=== PATIENT | female | born 1995 | race Hispanic/Latino ===

== ENCOUNTER 2017-05-05 09:22 | Emergency (ER) | payer SELFPAY ==
[2017-05-05 12:16] LABS: #Basophils 0.1 thou/uL (0.0-0.2); #Lymphocytes 1.4 thou/uL (1.20-3.40); #Monocytes 1.1 thou/uL (0.11-0.59); #Neutrophils 16.9 thou/uL (1.40-6.50); %Basophils 0.3 % (0.0-1.0); %Eosinophils 0.2 % (0.0-10.0); %Monocytes 5.8 % (0.0-4.0); Hematocrit 40.4 % (36.0-47.0); Mean Platelet Volume 8.4 fL (7.4-10.4); Red Blood Cell (RBC) Count 4.13 mill/uL (4.00-5.20); White Blood Cell (WBC) Count 19.4 thou/uL (4.8-10.8)
[2017-05-05] MEDS ORDERED: Ondansetron HCl/PF 4 MG/2 ML Vial ONE (12:40)
[2017-05-05 12:44] LABS: ALT (SGPT) 8 U/L (8-55); AST (SGOT) 15 U/L (5-30); Alkaline Phosphatase 62 U/L (40-150); Anion Gap 14 mmol/L (10-20); BUN (Urea Nitrogen) 13 mg/dL (8.4-21.0); Bilirubin, Total 1.4 mg/dL (0.2-1.2); Calc. Creatinine Clearance 0 mL/min (70-130); Calcium 9.7 mg/dL (7.8-10.44); Carbon Dioxide 25 mmol/L (22-29); Chloride 106 mmol/L (98-107); Estimated GFR-MDRD Greater than 90; Globulin 3.5 g/dL (2.4-3.5); Lipase 7 U/L (8-78); Protein, Total 8.1 g/dL (6.0-8.3)
[2017-05-05 13:27] LABS: Bilirubin Negative (Negative); Blood, Urine Negative (Negative); Glucose, Urine (Dipstick) Negative (Negative); Ketone, Urine 40 mg/dL (Negative); Nitrite Negative (Negative); Protein, Urine (Dipstick) Trace mg/dL (Neg-Trace); Urobilinogen 0.2 mg/dL (0.2-1.0)
[2017-05-05] MEDS ORDERED: Metoclopramide HCl 10 MG/2 ML VIAL ONE (14:03)
[2017-05-05] MEDS ORDERED: Morphine Sulfate 2 MG/ML SYRINGE ONE (15:51)
[2017-05-05] MEDS ORDERED: ISOVUE-370 76%-LOCM 1 ML ONE (16:46)
--- NOTE | 2017-05-05 17:19 | CT ---
CONTRAST ENHANCED CT IMAGES OF THE ABDOMEN AND PELVIS: History: Nausea, vomiting. Technique: Contrast enhanced CT of the abdomen and pelvis obtained administration of IV contrast. Or al contrast was not given. This does decrease the sensitivity for detection of pathology. FINDINGS: The lung bases are unremarkable. No evidence of free intraperitoneal air is seen. The liver, spleen, gallbladder, pancreas, adrenal glands, and kidneys are unremarkable. No dilated loops of small natalie l is seen. A normal appendix is seen. No significant evidence of colonic distention. No evidence of periaortic lymphadenopathy is seen. No evidence of significant pelvic fluid is seen. IMPRESSION: Unremarkable but limited CT of abdomen and pelvis. Small bowel does not appear to be dilated or obst ructed. POS: [facility]
== END 2017-05-05 17:30 | disposition home or self-care (01) ==
LOC: ERS 09:22
DX: R11.2 Nausea with vomiting, unspecified (principal); D50.9 Iron deficiency anemia, unspecified; Z87.891 Personal history of nicotine dependence
CPT/HCPCS: 36415; 74177; 80053; 81003; 81025; 83690; 84703; 85025; 87086; 96361; 96365; 96366; 96375; J2270; J2405; J2765

== ENCOUNTER 2017-05-07 08:00 | Emergency (ER) | payer SELFPAY ==
[2017-05-07 09:04] LABS: %Basophils 0.2 % (0.0-1.0); %Eosinophils 0.2 % (0.0-10.0); %Lymphocytes 17.6 % (28.0-48.0); Hematocrit 41.3 % (36.0-47.0); Mean Platelet Volume 7.9 fL (7.4-10.4); Red Blood Cell (RBC) Count 4.24 mill/uL (4.00-5.20); White Blood Cell (WBC) Count 8.9 thou/uL (4.8-10.8)
[2017-05-07 09:05] LABS: #Lymphocytes 1.6 thou/uL (1.20-3.40); #Neutrophils 6.3 thou/uL (1.40-6.50)
[2017-05-07 09:21] LABS: ALT (SGPT) 10 U/L (8-55); AST (SGOT) 14 U/L (5-30); Alkaline Phosphatase 56 U/L (40-150); Anion Gap 11 mmol/L (10-20); BUN (Urea Nitrogen) 16 mg/dL (8.4-21.0); Bilirubin, Total 2.4 mg/dL (0.2-1.2); Calc. Creatinine Clearance 0 mL/min (70-130); Calcium 9.5 mg/dL (7.8-10.44); Carbon Dioxide 26 mmol/L (22-29); Chloride 103 mmol/L (98-107); Estimated GFR-MDRD Greater than 90; Globulin 3.4 g/dL (2.4-3.5); Lipase 24 U/L (8-78); Protein, Total 7.8 g/dL (6.0-8.3)
[2017-05-07] MEDS ORDERED: Ondansetron HCl/PF 4 MG/2 ML Vial ONE (10:20)
[2017-05-07] MEDS ORDERED: Ketorolac Tromethamine 30 MG/ML VIAL ONE (10:20)
[2017-05-07] MEDS ORDERED: Lidocaine 2% Viscous Solution 10 ML, Aluminum & Magnesium Hydroxide 20 ML, Donnatal Eli... SSW SCH ×3 (12:15)
[2017-05-07] MEDS ORDERED: Mag-Al 1200 mg/1200 mg/30 ML UDCUP ONE (12:20)
[2017-05-07] MEDS ORDERED: Lidocaine Viscous Sol 2% 15 ml UD Cup ONE (12:20)
== END 2017-05-07 13:03 | disposition home or self-care (01) ==
LOC: ERS 08:00
DX: R11.2 Nausea with vomiting, unspecified (principal); R10.9 Unspecified abdominal pain; D50.9 Iron deficiency anemia, unspecified; Z87.891 Personal history of nicotine dependence
CPT/HCPCS: 36415; 80053; 83690; 85025; 96361; 96374; 96375; J1885; J2405

== ENCOUNTER 2018-01-13 18:12 | Emergency (ER) | payer SELFPAY ==
[2018-01-13 18:53] LABS: #Eosinphils 0.2 thou/uL (0.0-0.7); #Lymphocytes 2.4 thou/uL (1.20-3.40); #Monocytes 0.7 thou/uL (0.11-0.59); #Neutrophils 3.3 thou/uL (1.40-6.50); %Basophils 0.5 % (0.0-1.0); %Eosinophils 2.4 % (0.0-10.0); %Monocytes 10.8 % (0.0-4.0); %Neutrophils 50.2 % (31.0-61.0); Mean Corpuscular HGB CONC 34.6 g/dL (32.0-36.0); Mean Corpuscular Hemoglobin 33.1 pg (25.0-35.0); Mean Corpuscular Volume 95.5 fl (77.0-87.0); Mean Platelet Volume 7.7 fL (7.4-10.4); Platelet Count 186 thou/uL (130-400); RBC Distribution Width 11.4 % (11.5-14.5); Red Blood Cell (RBC) Count 4.23 mill/uL (4.00-5.20); White Blood Cell (WBC) Count 6.6 thou/uL (4.8-10.8)
[2018-01-13 19:05] LABS: Bilirubin Negative (Negative); Blood, Urine Negative (Negative); Clarity TURBID (Clear); Glucose, Urine (Dipstick) Negative (Negative); Leukocyte Negative (Negative); Nitrite Negative (Negative); Protein, Urine (Dipstick) Negative (Neg-Trace); Specific Gravity, Urine 1.015 (1.002-1.036); Urobilinogen 0.2 mg/dL (0.2-1.0)
[2018-01-13 19:06] LABS: Pregnancy Test - Urine (BHCG) Negative (Negative); Pregu Control Background? CLEAR/WHITE (CLR/WHITE); Pregu Control Bar Appear? YES (CONTROL BAR); Specific Gravity 1.015 (1.002-1.036)
[2018-01-13] MEDS ORDERED: Lidocaine Viscous Sol 2% 15 ml UD Cup ONE (19:11)
[2018-01-13] MEDS ORDERED: Mag-Al 1200 mg/1200 mg/30 ML UDCUP ONE (19:11)
[2018-01-13 19:14] LABS: ALT (SGPT) 7 U/L (8-55); AST (SGOT) 17 U/L (5-34); Albumin 4.7 g/dL (3.5-5.0); Alkaline Phosphatase 64 U/L (40-150); Anion Gap 13 mmol/L (10-20); BUN (Urea Nitrogen) 13 mg/dL (7.0-18.7); Bilirubin, Total 1.8 mg/dL (0.2-1.2); Calc. Creatinine Clearance 0 mL/min (70-130); Calcium 9.8 mg/dL (7.8-10.44); Carbon Dioxide 25 mmol/L (22-29); Chloride 104 mmol/L (98-107); Estimated GFR-MDRD Greater than 90; Globulin 3.2 g/dL (2.4-3.5); Glucose 98 mg/dL (70-105); Lipase 28 U/L (8-78); Potassium 4.2 mmol/L (3.5-5.1); Protein, Total 7.9 g/dL (6.0-8.3); Sodium 138 mmol/L (136-145)
--- NOTE | 2018-01-13 22:05 | ULT ---
GALLBLADDER ULTRASOUND: HISTORY: Right upper quadrant pain. Epigastric pain. COMPARISON: None. TECHNIQUE: Utilizing a Multi-Hertz transducer, sonographic imaging of the right upper quadrant is performed in t he longitudinal and transverse plane. FINDINGS: The head and body of the pancreas have a normal echotexture. The pancreatic tail is obscured by natalie l gas. The hepatic parenchyma has a normal echotexture. No hepatic masses or intrahepatic biliary dilatatio n. The contour of the hepatic margin is maintained. IVC is unremarkable. Contracted gallbladder due to nonfasting state. Common bile duct diameter is 0.2 cm. The main portal vein is patent. Appropriate directional flow. No hydronephrosis. The right kidney measures 9.3 cm in maximum dimension. IMPRESSION: Contracted gallbladder due to nonfasting state. POS: [facility]
== END 2018-01-13 21:05 | disposition home or self-care (01) ==
LOC: ERS 18:12
DX: K29.70 Gastritis, unspecified, without bleeding (principal); D50.9 Iron deficiency anemia, unspecified; Z87.891 Personal history of nicotine dependence; Z79.899 Other long term (current) drug therapy
CPT/HCPCS: 36415; 76705; 80053; 81003; 81025; 83690; 85025

== ENCOUNTER 2018-02-02 10:00 | Emergency (ER) | payer SELFPAY ==
[2018-02-02] MEDS ORDERED: Ondansetron ODT 4 MG TAB ONE (10:21)
[2018-02-02] MEDS ORDERED: Ketorolac Tromethamine 60 MG/2 ML VIAL ONE (10:21)
[2018-02-02] MEDS ORDERED: Metoclopramide HCl 10 MG TAB PO SCH (12:15)
[2018-02-02 12:20] LABS: Bilirubin Negative (Negative); Blood, Urine Moderate (Negative); Clarity CLEAR (Clear); Glucose, Urine (Dipstick) Negative (Negative); Leukocyte Negative (Negative); Nitrite Negative (Negative); Protein, Urine (Dipstick) Trace mg/dL (Neg-Trace); Specific Gravity, Urine 1.026 (1.002-1.036)
[2018-02-02 12:22] LABS: Pregnancy Test - Urine (BHCG) Negative (Negative); Pregu Control Background? CLEAR/WHITE (CLR/WHITE); Pregu Control Bar Appear? YES (CONTROL BAR); Specific Gravity 1.026 (1.002-1.036)
[2018-02-02 12:23] LABS: Bacteria/HPF None Seen HPF (None Seen); Hyaline Casts/LPF 0-3 HYALINE CAST LPF (0-3 Hyaline); WBC/HPF 0-3 HPF (0-3)
[2018-02-02 12:24] LABS: Renal Epithelial None Seen HPF (0-3); Transitional Epithelial NONE SEEN HPF (0-3)
[2018-02-02] MEDS ORDERED: Promethazine HCl 25 MG/ML VIAL ONE (12:55)
== END 2018-02-02 15:16 | disposition home or self-care (01) ==
LOC: ERS 10:00
DX: N94.6 Dysmenorrhea, unspecified (principal); R11.2 Nausea with vomiting, unspecified; D50.9 Iron deficiency anemia, unspecified; Z87.891 Personal history of nicotine dependence
CPT/HCPCS: 81003; 81015; 81025; 87086; 96365; 96366; 96372; J1885; J2550; Q0162

== ENCOUNTER 2018-08-28 21:08 | Emergency (ER) | payer SELFPAY ==
--- NOTE | 2018-08-28 21:43 | RAD ---
RADIOGRAPH RIGHT FOREARM TWO VIEWS: 08/28/18 HISTORY: 23-year-old female with blunt traumatic pain to the forearm. FINDINGS: Ulna minus. No fracture or any other focal osseous abnormality involving the radius or ulna. IMPRESSION: 1. Ulnar negative variance. 2. Otherwise negative. POS: [facility]
== END 2018-08-28 22:04 | disposition home or self-care (01) ==
LOC: ERS 21:08
DX: S50.11XA Contusion of right forearm, initial encounter (principal); D50.0 Iron deficiency anemia secondary to blood loss (chronic); Z87.891 Personal history of nicotine dependence; W20.8XXA Other cause of strike by thrown, projected or falling object, initial encounter

== ENCOUNTER 2018-09-27 06:47 | Emergency (ER) | payer SELFPAY ==
[2018-09-27] MEDS ORDERED: Ibuprofen 800 MG TAB ONE (07:18)
[2018-09-27] MEDS ORDERED: Ondansetron ODT 4 MG TAB ONE (07:18)
[2018-09-27 08:17] LABS: BHCG - Serum Negative (NEGATIVE); Pregs Control Background? CLEAR/WHITE (CLR/WHITE); Pregs Control Bar Appear? YES (CONTROL BAR)
== END 2018-09-27 08:44 | disposition home or self-care (01) ==
LOC: ERS 06:47
DX: N94.6 Dysmenorrhea, unspecified (principal); R11.2 Nausea with vomiting, unspecified; D50.9 Iron deficiency anemia, unspecified; Z87.891 Personal history of nicotine dependence
CPT/HCPCS: 36415; 84703; 99284; Q0162

== ENCOUNTER 2019-02-25 14:36 | Emergency (ER) | payer SELFPAY | END 2019-02-25 15:17 | disposition left against medical advice (07) | LOC: ERS 14:36 | DX: Z53.21 Procedure and treatment not carried out due to patient leaving prior to being seen by health care provider (principal) ==

== ENCOUNTER 2019-07-16 17:34 | Emergency (ER) | payer SELFPAY | END 2019-07-16 17:59 | disposition left against medical advice (07) | LOC: ERS 17:34 | DX: Z53.21 Procedure and treatment not carried out due to patient leaving prior to being seen by health care provider (principal) ==

== ENCOUNTER 2019-10-28 23:02 | Emergency (ER) | payer SELFPAY ==
[2019-10-28] MEDS ORDERED: Ondansetron PF 4 MG/2 ML Vial ONE ×2 (23:58→23:59)
[2019-10-28] MEDS ORDERED: Fentanyl 100 MCG/2 ML VIAL ONE (23:59)
[2019-10-29 00:22] LABS: #Basophils 0.1 thou/uL (0.0-0.2); #Lymphocytes 1.5 thou/uL (1.20-3.40); #Monocytes 1.2 thou/uL (0.11-0.59); #Neutrophils 11.5 thou/uL (1.40-6.50); %Basophils 0.4 % (0.0-1.0); %Lymphocytes 10.4 % (21.0-51.0); %Monocytes 8.4 % (0.0-10.0); %Neutrophils 80.8 % (42.0-75.0); Hemoglobin 14.4 g/dL (12.0-16.0); Mean Corpuscular HGB CONC 34.7 g/dL (32.0-36.0); Mean Corpuscular Hemoglobin 33.9 pg (27.0-31.0); Mean Corpuscular Volume 97.8 fL (78.0-98.0); Mean Platelet Volume 8.3 fL (7.4-10.4); Platelet Count 203 thou/uL (130-400); RBC Distribution Width 11.6 % (11.5-14.5); Red Blood Cell (RBC) Count 4.25 mill/uL (4.20-5.40); White Blood Cell (WBC) Count 14.2 thou/uL (4.8-10.8)
[2019-10-29 00:46] LABS: ALT (SGPT) 39 U/L (8-55); AST (SGOT) 32 U/L (5-34); Alkaline Phosphatase 65 U/L (40-110); Anion Gap 17 mmol/L (10-20); BUN (Urea Nitrogen) 12 mg/dL (7.0-18.7); Bilirubin, Total 1.9 mg/dL (0.2-1.2); Calc. Creatinine Clearance 0 mL/min (70-130); Carbon Dioxide 25 mmol/L (22-29); Chloride 102 mmol/L (98-107); Estimated GFR-MDRD Greater than 90; Globulin 3.2 g/dL (2.4-3.5); Glucose 145 mg/dL (70-105); Lipase 8 U/L (8-78); Potassium 4.2 mmol/L (3.5-5.1); Protein, Total 8.2 g/dL (6.0-8.3); Sodium 140 mmol/L (136-145)
[2019-10-29 01:12] LABS: Bacteria/HPF None Seen HPF (None Seen); Bilirubin Negative (Negative); Blood, Urine Negative (Negative); Clarity Turbid (Clear); Glucose, Urine (Dipstick) 30 mg/dL (Negative); Leukocyte Negative Leu/uL (Negative); Nitrite Negative (Negative); Protein, Urine (Dipstick) 600 mg/dL (Neg-Trace); Squamous Epithelial 21-50 HPF (0-3); Urobilinogen 3 mg/dL (Less than 2)
[2019-10-29 01:14] LABS: Specific Gravity 1.038 (1.002-1.036)
[2019-10-29 01:15] LABS: Pregnancy Test - Urine (BHCG) Negative (Negative); Pregu Control Background? CLEAR/WHITE (CLR/WHITE); Pregu Control Bar Appear? YES (CONTROL BAR)
--- NOTE | 2019-10-29 08:03 | ULT ---
PRELIMINARY REPORT/[facility]/EMERGENCY AFTER HOURS PROCEDURE: EXAM: US Abdomen Limited, Right Upper Quadrant. CLINICAL HISTORY: RUQ pain, N/V TECHNIQUE: Real-time ultrasound of the right upper quadrant with image documentation. COMPARISON: None provided. FINDINGS: LIVER: Unremarkable. GALLBLADDER: No gallstone. No wall thickening. No pericholecystic fluid. COMMON BILE DUCT: No dilation. PANCREAS: Unremarkable as visualized. The distal pancreas is obscured by overlying bowel gas. RIGHT KIDNEY: Unremarkable. No hydronephrosis. IMPRESSION: Unremarkable right upper quadrant ultrasound. ELECTRONICALLY SIGNED BY: Laury Scott D.O. Oct 29, 2019 1:12:32 AM CDT This report is intended for review by the ordering physician only, in accordance of law. If you recei ve this report in error, please call [facility] at [phone]. FINAL REPORT GALLBLADDER ULTRASOUND: Date: 10/29/2019 COMPARISON: 01/13/2018. HISTORY: Vomiting. Right upper quadrant pain. FINDINGS: Visualized pancreas has a normal echotexture. Hepatic parenchyma has a normal echotexture. No hepatic masses or intrahepatic dilatation. Contour of the hepatic margin is maintained. Right hepatic lobe m easures 13.8 cm. Right kidney has a normal cortical echotexture. No hydronephrosis. Right kidney measures 10.7 cm in m aximum dimension. Main portal vein is patent. Appropriate direction of flow. Common bile duct diameter is 0.3 cm. No sonographic evidence of cholelithiasis, gallbladder wall thickening, or pericholecystic fluid. Com ment is not made on the presence or absence of Duncan's sign. IMPRESSION: This report is in agreement with the initial report by [facility]. No sonographic evidence of c holelithiasis or cholecystitis. POS: [facility]
== END 2019-10-29 01:55 | disposition home or self-care (01) ==
LOC: ERS 23:02
DX: R11.2 Nausea with vomiting, unspecified (principal); F32.9 Major depressive disorder, single episode, unspecified; F17.210 Nicotine dependence, cigarettes, uncomplicated; Z79.899 Other long term (current) drug therapy
CPT/HCPCS: 76705; 80053; 81003; 81015; 81025; 83690; 85025; 96361; 96374; 96375; J2405; J3010

== ENCOUNTER 2020-01-12 16:47 | Emergency (ER) | payer SELFPAY | END 2020-01-12 17:22 | disposition home or self-care (01) | LOC: ERS 16:47 | DX: S40.812A Abrasion of left upper arm, initial encounter (principal); L03.114 Cellulitis of left upper limb; F32.9 Major depressive disorder, single episode, unspecified; F17.210 Nicotine dependence, cigarettes, uncomplicated; W26.0XXA Contact with knife, initial encounter; Y92.000 Kitchen of unspecified non-institutional (private) residence as the place of occurrence of the external cause | CPT/HCPCS: 99283 ==

== ENCOUNTER 2020-04-08 10:59 | Emergency (ER) | payer SELFPAY ==
[2020-04-08 12:15] LABS: #Basophils 0.1 thou/uL (0.0-0.2); #Eosinphils 0.1 thou/uL (0.0-0.7); #Lymphocytes 2.1 thou/uL (1.20-3.40); #Neutrophils 12.7 thou/uL (1.40-6.50); %Basophils 0.4 % (0.0-1.0); %Eosinophils 0.6 % (0.0-10.0); %Lymphocytes 13.1 % (21.0-51.0); %Monocytes 6.2 % (0.0-10.0); %Neutrophils 79.6 % (42.0-75.0); Hemoglobin 13.6 g/dL (12.0-16.0); Mean Corpuscular HGB CONC 33.7 g/dL (32.0-36.0); Mean Corpuscular Hemoglobin 33.2 pg (27.0-31.0); Mean Corpuscular Volume 98.6 fL (78.0-98.0); Mean Platelet Volume 8.2 fL (7.4-10.4); Platelet Count 220 thou/uL (130-400); RBC Distribution Width 11.9 % (11.5-14.5); Red Blood Cell (RBC) Count 4.08 mill/uL (4.20-5.40)
[2020-04-08 12:24] LABS: ALT (SGPT) 9 U/L (8-55); AST (SGOT) 18 U/L (5-34); Albumin 4.6 g/dL (3.5-5.0); Alkaline Phosphatase 54 U/L (40-110); Anion Gap 15 mmol/L (10-20); BUN (Urea Nitrogen) 11 mg/dL (7.0-18.7); Calc. Creatinine Clearance 0 mL/min (70-130); Calcium 9.3 mg/dL (7.8-10.44); Carbon Dioxide 22 mmol/L (22-29); Chloride 109 mmol/L (98-107); Estimated GFR-MDRD Greater than 90; Globulin 3.1 g/dL (2.4-3.5); Glucose 140 mg/dL (70-105); Lipase 12 U/L (8-78); Potassium 3.4 mmol/L (3.5-5.1); Protein, Total 7.7 g/dL (6.0-8.3); Sodium 143 mmol/L (136-145)
[2020-04-08] MEDS ORDERED: Ketorolac Tromethamine 30 MG/ML VIAL ONE (12:31)
[2020-04-08] MEDS ORDERED: Ondansetron PF 4 MG/2 ML Vial ONE (12:35)
[2020-04-08] MEDS ORDERED: Prochlorperazine Edisylate 10 MG in Sodium Chloride 0.9% 50 ML IVPB SCH (12:45)
[2020-04-08 13:04] LABS: Bacteria/HPF None Seen HPF (None Seen); Bilirubin Negative (Negative); Blood, Urine 3+ (Negative); Clarity Turbid (Clear); Glucose, Urine (Dipstick) Normal (Negative); Ketone, Urine Negative (Negative); Leukocyte 75 Leu/uL (Negative); Nitrite Negative (Negative); Protein, Urine (Dipstick) 200 mg/dL (Neg-Trace); RBC/HPF Greater than 50 HPF (0-3); Specific Gravity, Urine 1.029 (1.002-1.036); Urobilinogen Normal mg/dL (Less than 2); WBC/HPF Greater than 50 HPF (0-3); pH, Urine 8.5 (5.0-9.0)
[2020-04-08 13:07] LABS: BHCG - Serum Negative (NEGATIVE); Pregs Control Background? CLEAR/WHITE (CLR/WHITE); Pregs Control Bar Appear? YES (CONTROL BAR)
[2020-04-08] MEDS ORDERED: HYDROcodone/Acetaminophen 5/325 mg Tablet ONE (13:20)
== END 2020-04-08 14:09 | disposition home or self-care (01) ==
LOC: ERS 10:59
DX: N93.8 Other specified abnormal uterine and vaginal bleeding (principal); F32.9 Major depressive disorder, single episode, unspecified; F17.210 Nicotine dependence, cigarettes, uncomplicated
CPT/HCPCS: 36415; 80053; 81003; 81015; 83690; 84703; 85025; 87086; 94760; 96361; 96374; 96375; J0780; J1885; J2405

== ENCOUNTER 2020-05-26 05:35 | Inpatient (IN) | payer SELFPAY ==
[2020-05-26] MEDS ORDERED: Lorazepam 2 MG/ML VIAL ONE (05:51)
[2020-05-26] MEDS ORDERED: Ondansetron PF 4 MG/2 ML Vial ONE ×4 (05:51→16:55)
[2020-05-26] MEDS ORDERED: Magnesium 2 GM/50 ML BAG (IN WATER) ONE (06:19)
[2020-05-26] MEDS ORDERED: WATER IV SCH ×2 (06:30→13:15)
[2020-05-26] MEDS ORDERED: DEXTROSE 5% IV SCH ×2 (06:30→13:15)
[2020-05-26] MEDS ORDERED: ACETYLCYSTEINE IV SCH ×2 (06:30→13:15)
[2020-05-26 06:39] LABS: #Basophils 0.1 thou/uL (0.0-0.2); #Lymphocytes 1.3 thou/uL (1.20-3.40); #Monocytes 0.4 thou/uL (0.11-0.59); #Neutrophils 4.3 thou/uL (1.40-6.50); %Basophils 1.5 % (0.0-1.0); %Eosinophils 0.2 % (0.0-10.0); %Lymphocytes 21.5 % (21.0-51.0); %Neutrophils 69.8 % (42.0-75.0); Hemoglobin 13.9 g/dL (12.0-16.0); Mean Corpuscular HGB CONC 34.7 g/dL (32.0-36.0); Mean Corpuscular Hemoglobin 33.2 pg (27.0-31.0); Mean Corpuscular Volume 95.7 fL (78.0-98.0); Mean Platelet Volume 9.1 fL (7.4-10.4); Platelet Count 177 thou/uL (130-400); RBC Distribution Width 10.9 % (11.5-14.5); Red Blood Cell (RBC) Count 4.19 mill/uL (4.20-5.40); White Blood Cell (WBC) Count 6.2 thou/uL (4.8-10.8)
[2020-05-26 06:45] LABS: INR-International Normal Ratio 1.1; PTT 23.5 sec (22.9-36.1); Prothrombin Time 14.3 sec (12.0-14.7)
[2020-05-26 07:10] LABS: Alcohol Less than 10 mg/dL (Less than 10); Magnesium 1.8 mg/dL (1.6-2.6); Salicylate Less than 8.0 mg/dL (15.0-30.0)
[2020-05-26 07:13] LABS: ALT (SGPT) Less than 7 U/L (8-55); AST (SGOT) 18 U/L (5-34); Albumin 4.5 g/dL (3.5-5.0); Alkaline Phosphatase 56 U/L (40-110); Anion Gap 15 mmol/L (10-20); BUN (Urea Nitrogen) 12 mg/dL (7.0-18.7); Bilirubin, Total 1.7 mg/dL (0.2-1.2); Calc. Creatinine Clearance 0 mL/min (70-130); Calcium 9.2 mg/dL (7.8-10.44); Carbon Dioxide 23 mmol/L (22-29); Chloride 104 mmol/L (98-107); Estimated GFR-MDRD Greater than 90; Globulin 3.1 g/dL (2.4-3.5); Glucose 170 mg/dL (70-105); Lipase 8 U/L (8-78); Potassium 3.2 mmol/L (3.5-5.1); Protein, Total 7.6 g/dL (6.0-8.3); Sodium 139 mmol/L (136-145)
[2020-05-26] MEDS ORDERED: DEXTROSE 5% IVPB SCH (07:45)
[2020-05-26] MEDS ORDERED: ACETYLCYSTEINE IVPB SCH (07:45)
[2020-05-26] MEDS ORDERED: WATER IVPB SCH (07:45)
[2020-05-26] MEDS ORDERED: Promethazine HCl 25 MG/ML VIAL ONE (07:51)
[2020-05-26 10:19] LABS: Bilirubin Negative (Negative); Blood, Urine Negative (Negative); Clarity Clear (Clear); Glucose, Urine (Dipstick) 150 mg/dL (Negative); Ketone, Urine Greater than 150 mg/dL (Negative); Leukocyte Negative Leu/uL (Negative); Nitrite Negative (Negative); Protein, Urine (Dipstick) Negative (Neg-Trace); Specific Gravity, Urine 1.021 (1.002-1.036); Urobilinogen Normal mg/dL (Less than 2)
[2020-05-26 10:20] LABS: Pregnancy Test - Urine (BHCG) Negative (Negative); Pregu Control Background? CLEAR/WHITE (CLR/WHITE); Pregu Control Bar Appear? YES (CONTROL BAR); Specific Gravity 1.021 (1.002-1.036)
[2020-05-26 10:29] LABS: Medtox Reader # READER 1
[2020-05-26 10:30] LABS: Amphetamine Not Detected (NotDetected); Barbiturates Screen Not Detected (NotDetected); Benzodiazepine Screen Detected (NotDetected); Cocaine Metabolite Screen Not Detected (NotDetected); Medtox Control Line Valid? VALID (VALID); Methadone Not Detected (NotDetected); Methamphetamine Not Detected (NotDetected); Opiate Screen Not Detected (NotDetected); Oxycodone Screen Not Detected (NotDetected); Phencyclidine (PCP) Not Detected (NotDetected); THC/Cannabinoid Screen Detected (NotDetected); Tricyclic Screen Not Detected (NotDetected)
--- NOTE | 2020-05-26 10:31 | PDOC.HHP ---
Hospitalist HPI - History of Present Illness Suicide attempt History of Present Illness: This is a 24-year-old female patient who was brought to the ED on account of After intentional aspirin overdose as above 8 PM a day ago, patient significant other activated EMS and she was brought into the ED for further evaluation. Of note she took between about 40 pills. She also has a history of suicidal attempt with cutting. She was agitated at the time of presentation. At presentation blood pressure was 106/71, temperature 97.6, pulse 95 saturating 96 on room air. CBC was essentially all within normal limits blood chemistry showed hypokalemia of 3.2, total bilirubin 1.7 and ALT less than 7. Glucose was 170. She was started on N-acetylcysteine protocol. She also received 2 g magnesium sulfate, 1 mg lorazepam, ondansetron 8 mg and a liter of bolus normal saline. Poison control was not contacted. Review of previous record notes that she had a recent abdominal ultrasound which noted no abnormalities, she had a liver biopsy in 2016 showing chronic hepatitis with possibility of primary biliary cirrhosis. At the time of my evaluation she was somnolent after having given given Ativan however she would wake on shaking. She notes having ongoing abdominal pain and then goes back to sleep. She denied any shortness of breath or chest pain. No family was by her bedside. Hospitalist ROS - Review of Systems ROS unobtainable: due to mental status Hospitalist History - Past Medical History Other Medical History: Depression, previous suicidal ideation, possible liver cirrhosis. - Past Surgical History Other Surgical History: Liver biopsy - Family History Other Family History: None at the moment - Social History Other Social History: Unable to ascertain - Exam General - other findings: Drowsy, wakes if shaking. No acute distress ENT: normocephalic atraumatic Heart: RRR, no murmur, no gallops, no rubs Respiratory: no wheezes, no rales, no ronchi, normal chest expansion Gastrointestinal: soft Gastrointestinal - other findings: Right upper quadrant tenderness no rebound tenderness or guarding Extremities: no cyanosis, no clubbing, no edema Skin: normal turgor, no lesions Neurological: no focal deficits Psychiatric - other findings: Drowsy, oriented to self Hospitalist Results - Labs Result Diagrams: 05/26/20 05:53 05/26/20 05:53 Lab results: WBC 6.2 thou/uL (4.8-10.8) 05/26/20 05:53 Hgb 13.9 g/dL (12.0-16.0) 05/26/20 05:53 Hct 40.1 % (36.0-47.0) 05/26/20 05:53 MCV 95.7 fL (78.0-98.0) 05/26/20 05:53 Plt Count 177 thou/uL (130-400) 05/26/20 05:53 Neutrophils % 69.8 % (42.0-75.0) 05/26/20 05:53 Sodium 139 mmol/L (136-145) 05/26/20 05:53 Potassium 3.2 mmol/L (3.5-5.1) L 05/26/20 05:53 Chloride 104 mmol/L (98-107) 05/26/20 05:53 Carbon Dioxide 23 mmol/L (22-29) 05/26/20 05:53 BUN 12 mg/dL (7.0-18.7) 05/26/20 05:53 Creatinine 0.78 mg/dL (0.6-1.1) 05/26/20 05:53 Glucose 170 mg/dL (70-105) H 05/26/20 05:53 Calcium 9.2 mg/dL (7.8-10.44) 05/26/20 05:53 Total Bilirubin 1.7 mg/dL (0.2-1.2) H 05/26/20 05:53 AST 18 U/L (5-34) 05/26/20 05:53 ALT Less than 7 U/L (8-55) L 05/26/20 05:53 Alkaline Phosphatase 56 U/L (40-110) 05/26/20 05:53 Serum Total Protein 7.6 g/dL (6.0-8.3) 05/26/20 05:53 Albumin 4.5 g/dL (3.5-5.0) 05/26/20 05:53 Lipase 8 U/L (8-78) 05/26/20 05:53 Urine Ketones Greater than 150 mg/dL (Negative) A 05/26/20 09:28 Urine Blood Negative (Negative) 05/26/20 09:28 Urine Nitrite Negative (Negative) 05/26/20 09:28 Ur Leukocyte Esterase Negative Dax/uL (Negative) 05/26/20 09:28 Hospitalist H&P A/P - Plan Plan: This is a 24-year-old female patient with a previous psychiatric history of possible suicide attempt, possible primary biliary cirrhosis who was brought in overnight on account of attempted suicide by Tylenol overdose. Suicidal attempt Started on N-acetylcysteine protocol We will call poison control for further directions. Sitter in place [facility] prior to discharge Acetaminophen toxicity Ingested about 40 pills Levels at presentation 46 Received bolus then currently on 4 drip. To start 16-hour drip at about 12:00we will check coags, LFT and acetaminophen levels 3 hours prior to finish of 16-hour bag. She will need a repeat 16-hour bag if any of these are within abnormal limitspharmacy is to be notified. Protocol was discussed with poison control. Case #[id number]. Hepatitis Has right upper quadrant pain likely secondary to dental infection We will monitor potassium CMP Hypokalemia Correct potassium Check magnesium VT prophylaxisSCD Dispositionpending improvement CODE STATUSfull code
[2020-05-26] MEDS ORDERED: Ondansetron ODT 4 MG TAB PO PRN (10:55)
[2020-05-26] MEDS ORDERED: Electrolyte Replacement Protoc 1 EACH EACH FS SCH (11:15)
[2020-05-26 12:25] LABS: ALT (SGPT) 8 U/L (8-55); AST (SGOT) 14 U/L (5-34); Albumin 4.3 g/dL (3.5-5.0); Alkaline Phosphatase 45 U/L (40-110); Anion Gap 13 mmol/L (10-20); BUN (Urea Nitrogen) 7 mg/dL (7.0-18.7); Bilirubin, Total 1.5 mg/dL (0.2-1.2); Calc. Creatinine Clearance 0 mL/min (70-130); Calcium 8.2 mg/dL (7.8-10.44); Carbon Dioxide 23 mmol/L (22-29); Chloride 105 mmol/L (98-107); Estimated GFR-MDRD Greater than 90; Globulin 2.9 g/dL (2.4-3.5); Glucose 173 mg/dL (70-105); Magnesium 2.1 mg/dL (1.6-2.6); Protein, Total 7.2 g/dL (6.0-8.3); Sodium 138 mmol/L (136-145)
[2020-05-26 12:29] LABS: Potassium 2.9 mmol/L (3.5-5.1)
[2020-05-26] MEDS ORDERED: Potassium Chloride 20 MEQ TAB PO SCH (12:45)
[2020-05-26] MEDS ORDERED: Electrolyte Replacement Protocol FS PRN (12:45)
[2020-05-26] MEDS ORDERED: Potassium Chloride 20 MEQ TAB ONE (14:00)
[2020-05-26] MEDS: Potassium Chloride 10 MEQ in Premix Bag 1 BAG IVPB SCH ×4 (15:03→18:41)
[2020-05-26] MEDS: Ondansetron PF 4 MG/2 ML Vial IVP PRN (17:06)
[2020-05-26 20:07] VITALS: BMI 19.8
--- NOTE | 2020-05-26 22:05 | PDOC.FMACP ---
Advance Care Planning - Note Summary: Patient had altered mental state could not discuss goals of care
[2020-05-26 22:52] LABS: Anion Gap 15 mmol/L (10-20); BUN (Urea Nitrogen) 5 mg/dL (7.0-18.7); Calc. Creatinine Clearance 92 mL/min (70-130); Calcium 8.9 mg/dL (7.8-10.44); Carbon Dioxide 20 mmol/L (22-29); Chloride 106 mmol/L (98-107); Estimated GFR-MDRD Greater than 90; Glucose 111 mg/dL (70-105); Potassium 3.9 mmol/L (3.5-5.1); Sodium 137 mmol/L (136-145)
[2020-05-27 02:29] LABS: #Lymphocytes 1.9 thou/uL (1.20-3.40); #Monocytes 1.5 thou/uL (0.11-0.59); #Neutrophils 8.1 thou/uL (1.40-6.50); %Basophils 0.3 % (0.0-1.0); %Eosinophils 0.1 % (0.0-10.0); %Lymphocytes 16.2 % (21.0-51.0); %Monocytes 12.7 % (0.0-10.0); %Neutrophils 70.7 % (42.0-75.0); Hemoglobin 13.9 g/dL (12.0-16.0); Mean Corpuscular HGB CONC 33.8 g/dL (32.0-36.0); Mean Corpuscular Hemoglobin 32.6 pg (27.0-31.0); Mean Corpuscular Volume 96.4 fL (78.0-98.0); Platelet Count 171 thou/uL (130-400); RBC Distribution Width 11.2 % (11.5-14.5); Red Blood Cell (RBC) Count 4.27 mill/uL (4.20-5.40); White Blood Cell (WBC) Count 11.4 thou/uL (4.8-10.8)
[2020-05-27] MEDS: Ondansetron PF 4 MG/2 ML Vial IVP PRN (02:34)
[2020-05-27 02:36] LABS: INR-International Normal Ratio 1.3
[2020-05-27 02:51] LABS: ALT (SGPT) 10 U/L (8-55); AST (SGOT) 15 U/L (5-34); Acetaminophen Less than 6.0 mcg/mL (10.0-30.0); Albumin 3.9 g/dL (3.5-5.0); Alkaline Phosphatase 47 U/L (40-110); Anion Gap 16 mmol/L (10-20); BUN (Urea Nitrogen) 5 mg/dL (7.0-18.7); Calc. Creatinine Clearance 100 mL/min (70-130); Calcium 8.8 mg/dL (7.8-10.44); Carbon Dioxide 17 mmol/L (22-29); Chloride 107 mmol/L (98-107); Estimated GFR-MDRD Greater than 90; Globulin 2.9 g/dL (2.4-3.5); Glucose 122 mg/dL (70-105); Potassium 3.6 mmol/L (3.5-5.1); Protein, Total 6.8 g/dL (6.0-8.3); Sodium 136 mmol/L (136-145)
[2020-05-27 02:56] LABS: Anion Gap 16 mmol/L (10-20); BUN (Urea Nitrogen) 4 mg/dL (7.0-18.7); Calc. Creatinine Clearance 103 mL/min (70-130); Calcium 8.9 mg/dL (7.8-10.44); Carbon Dioxide 17 mmol/L (22-29); Chloride 106 mmol/L (98-107); Estimated GFR-MDRD Greater than 90; Glucose 121 mg/dL (70-105); Magnesium 1.9 mg/dL (1.6-2.6); Potassium 3.5 mmol/L (3.5-5.1); Sodium 135 mmol/L (136-145)
[2020-05-27] MEDS ORDERED: Magnesium 2 GM/50 ML 2 GM in Premix Bag 1 BAG IVPB SCH (08:00)
[2020-05-27] MEDS ORDERED: Potassium Chloride 20 MEQ TAB PO SCH (09:00)
[2020-05-27] MEDS ORDERED: Pantoprazole 40 MG VIAL IVP SCH (11:30)
[2020-05-27] MEDS ORDERED: Sodium Chloride 0.9% (PF) 10 ML VIAL FS PRN (11:45)
[2020-05-27] MEDS ORDERED: FLU VACC QS2020-21(6MOS UP)/PF 60 MCG/0.5 ML SYRINGE IM ONE (21:00)
--- NOTE | 2020-05-27 23:15 | PDOC.HOSPP ---
- Subjective Encounter Date: 05/27/20 Encounter Time: 09:00 Subjective: Patient was seen and examined in bed. She completed 10 N-acetylcysteine protocol overnight She was still drowsy She denies any chest pain or shortness of breath. She notes some epigastric pain. - Objective Vital Signs & Weight: Vital Signs (12 hours) Temp Pulse Resp BP Pulse Ox 05/27/20 19:59 98.7 F 70 18 97/52 L 99 05/27/20 15:50 98.4 F 102 H 22 H 113/73 98 05/27/20 11:59 98.8 F 105 H 22 H 98/57 L 99 Weight Admit Weight 104 lb 12.8 oz Weight 104 lb 12.8 oz I&O: 05/26/20 05/27/20 05/28/20 06:59 06:59 06:59 Intake Total 0 1225 Output Total 51 Balance -51 1225 Result Diagrams: 05/27/20 02:18 05/27/20 02:18 Additional Labs: Accuchecks 05/27/20 05/27/20 05/27/20 20:06 16:14 11:54 POC Glucose 104 H 109 H 110 H 05/27/20 05/27/20 05/27/20 09:00 05:10 00:13 POC Glucose 109 H 120 H 127 H Hospitalist ROS - Medication Medications: Active Medications Generic Name Dose Route Start Last Admin Trade Name Freq PRN Reason Stop Dose Admin Ondansetron HCl 4 mg 05/26/20 10:55 05/27/20 02:34 Ondansetron Pf 4 Mg/2 Ml Vial IVP 4 mg Q6H PRN Administration Nausea/Vomiting Ondansetron HCl 4 mg 05/26/20 10:55 05/26/20 21:43 Ondansetron Odt 4 Mg Tab PO 4 mg Q6H PRN Administration Nausea/Vomiting - Exam Eye: PERRL, anicteric sclera ENT: normocephalic atraumatic, no oropharyngeal lesions Neck: supple, symmetric, no JVD Heart: RRR, no murmur, no gallops, no rubs Respiratory: no wheezes, no rales, no ronchi, normal chest expansion Gastrointestinal: soft, non-distended, normal bowel sounds Gastrointestinal - other findings: Epigastric tenderness. Neurological: cranial nerve grossly intact, no weakness Psychiatric: A&O x 3 Psychiatric - other findings: Affect flat. Hosp A/P - Plan This is a 24-year-old female patient on admission on account of suicidal attempts due to excess Tylenol overdose. Suicidal attempt Unclear motive Sitter in room. Evaluation by [facility] tomorrow for placement. Tylenol overdose Completed N-acetylcysteine protocol Liver enzymes, Tylenol levels and coagulation intact. We will monitor for 1 more night. Possible depression/bipolar disorder [facility] evaluation Appreciate input. VT prophylaxisnone CODE STATUSfull code
[2020-05-28] MEDS: Ondansetron PF 4 MG/2 ML Vial IVP PRN (03:47)
[2020-05-28 05:06] LABS: ALT (SGPT) 16 U/L (8-55); AST (SGOT) 21 U/L (5-34); Albumin 4.3 g/dL (3.5-5.0); Alkaline Phosphatase 49 U/L (40-110); Anion Gap 13 mmol/L (10-20); BUN (Urea Nitrogen) 7 mg/dL (7.0-18.7); Bilirubin, Total 2.6 mg/dL (0.2-1.2); Calc. Creatinine Clearance 97 mL/min (70-130); Calcium 9.6 mg/dL (7.8-10.44); Carbon Dioxide 22 mmol/L (22-29); Chloride 106 mmol/L (98-107); Estimated GFR-MDRD Greater than 90; Globulin 3.2 g/dL (2.4-3.5); Glucose 104 mg/dL (70-105); Potassium 4.1 mmol/L (3.5-5.1); Protein, Total 7.5 g/dL (6.0-8.3); Sodium 137 mmol/L (136-145)
--- NOTE | 2020-05-28 08:59 | PDOC.HOSPP ---
- Subjective Encounter Date: 05/28/20 (f/u tylenol overdose) Encounter Time: 08:57 Subjective: Pt admitted 2 days ago for tylenol overdose, has completed IV NAC. Pt reports she has been nauseous and vomiting since admission, c/o abd pain that resolved this morning. She states she has not been eating/drinking fluids. reports the abd pain stopped at 4 am today, she has been taking showers to help relieve the pain. She denies feelig lightheaded or dizzy. she denies any other new symptoms. - Objective Vital Signs & Weight: Vital Signs (12 hours) Temp Pulse Resp BP Pulse Ox 05/28/20 07:24 97.8 F 67 16 89/50 L 100 05/28/20 03:41 98.5 F 61 16 100/55 L 100 Weight Admit Weight 104 lb 12.8 oz Weight 104 lb 12.8 oz I&O: 05/27/20 05/28/20 05/29/20 06:59 06:59 06:59 Intake Total 0 1461 Output Total 51 Balance -51 1461 Result Diagrams: 05/28/20 09:39 05/28/20 04:19 Additional Labs: Accuchecks 05/28/20 05/28/20 05/27/20 07:53 04:19 23:45 POC Glucose 93 100 113 H 05/27/20 05/27/20 05/27/20 20:06 16:14 11:54 POC Glucose 104 H 109 H 110 H 05/27/20 09:00 POC Glucose 109 H EKG Reviewed by me: Yes (tele - sinus 70-90's) Hospitalist ROS - Medication Medications: Active Medications Generic Name Dose Route Start Last Admin Trade Name Freq PRN Reason Stop Dose Admin Ondansetron HCl 4 mg 05/26/20 10:55 05/28/20 03:47 Ondansetron Pf 4 Mg/2 Ml Vial IVP 4 mg Q6H PRN Administration Nausea/Vomiting Ondansetron HCl 4 mg 05/26/20 10:55 05/26/20 21:43 Ondansetron Odt 4 Mg Tab PO 4 mg Q6H PRN Administration Nausea/Vomiting - Exam General Appearance: NAD Heart: RRR, no murmur Respiratory: CTAB, no wheezes, no rales, no ronchi Gastrointestinal: soft, non-tender, non-distended, normal bowel sounds Extremities: no cyanosis, no clubbing, no edema Psychiatric: normal affect Hosp A/P (1) Tylenol overdose Code(s): T39.1X1A - POISONING BY 4-AMINOPHENOL DERIVATIVES, ACCIDENTAL, INIT Status: Acute (2) Abdominal pain Code(s): R10.9 - UNSPECIFIED ABDOMINAL PAIN Status: Acute Qualifiers: Abdominal location: generalized Qualified Code(s): R10.84 - Generalized a bdominal pain (3) Suicidal intent Code(s): R45.851 - SUICIDAL IDEATIONS Status: Acute (4) Total bilirubin, elevated Code(s): R17 - UNSPECIFIED JAUNDICE Status: Acute - Plan Tylenol overdose - s/p NAC an no further tx recommended by Poison control due to normal AST/ALT. I called Poison control today about rising bilirubin - not traditionally associated with liver injury. Recommend rechecking INR and if 1.5 or higher - to call them back. Elevated bilirubin - has been elevated in the past - this may be normal for the patient, related to a lack of PO intake/n/v/abd pain, or related to overdose - check RUQ ultrasound - check coags N/V/Abd pain - - uncertain etiology - bolus NS and start IVF until ultrasound complete - monitor for return of sx - advance diet as tolerated after US - NPO for now SA - not yet cleared for [facility] - pending above dvt prophy - ambulatory gi prophy - continue the protonix until taking PO\ code status full reviewed plan of care with patient and RN, no questions or further needs at end of eval. Addendum - 10:34 - coags normal, RUQ ultrasound normal. WBC remains elevated and likely associated with events leading to this hospitalization. There are no signs of a current/active infection. Advance diet to liquids and then regular as tolerated. When taking PO, will be cleared for [facility].
[2020-05-28] MEDS ORDERED: Pantoprazole 40 MG VIAL IVP SCH ×2 (09:00)
[2020-05-28] MEDS ORDERED: Sodium Chloride 0.9% 500 ML IV SCH (09:00)
[2020-05-28] MEDS: D5 1/2 NS w/20 mEq KCL 1,000 ML IV SCH ×2 (09:51→23:32)
[2020-05-28 10:16] LABS: #Basophils 0.1 thou/uL (0.0-0.2); #Lymphocytes 2.8 thou/uL (1.20-3.40); #Monocytes 1.8 thou/uL (0.11-0.59); #Neutrophils 7.8 thou/uL (1.40-6.50); %Basophils 0.7 % (0.0-1.0); %Eosinophils 0.3 % (0.0-10.0); %Lymphocytes 22.2 % (21.0-51.0); %Monocytes 14.7 % (0.0-10.0); %Neutrophils 62.1 % (42.0-75.0); Hemoglobin 14.5 g/dL (12.0-16.0); Mean Corpuscular HGB CONC 34.3 g/dL (32.0-36.0); Mean Corpuscular Hemoglobin 33.2 pg (27.0-31.0); Mean Corpuscular Volume 96.8 fL (78.0-98.0); Mean Platelet Volume 8.8 fL (7.4-10.4); Platelet Count 177 thou/uL (130-400); RBC Distribution Width 11.1 % (11.5-14.5); Red Blood Cell (RBC) Count 4.35 mill/uL (4.20-5.40); White Blood Cell (WBC) Count 12.5 thou/uL (4.8-10.8)
[2020-05-28 10:22] LABS: INR-International Normal Ratio 1.1; Prothrombin Time 13.9 sec (12.0-14.7)
--- NOTE | 2020-05-28 10:31 | ULT ---
GALLBLADDER ULTRASOUND: INDICATION: Right upper quadrant pain. FINDINGS: Gallbladder has a normal sonographic appearance. No evidence of gallstones. The common bile duct is normal caliber. Visualized liver, pancreas, and right kidney appear unremarkable. IMPRESSION: Unremarkable right upper quadrant ultrasound exam. POS: [facility]
--- NOTE | 2020-05-28 11:16 | EKG ---
Test Reason : Blood Pressure : / mmHG Vent. Rate : 077 BPM Atrial Rate : 077 BPM P-R Int : 144 ms QRS Dur : 082 ms QT Int : 436 ms P-R-T Axes : 066 076 052 degrees QTc Int : 493 ms Normal sinus rhythm with sinus arrhythmia Possible Left atrial enlargement Prolonged QT Abnormal ECG Confirmed by ISRAEL CABRERA ([id number]), state editor AUREA VASQUEZ ([id number]) on 05/28/2020 11:16:09 AM Referred By: Confirmed By:ISRAEL CABRERA
--- NOTE | 2020-05-28 14:06 | PDOC.EVN ---
Event Note - Event Note Event Note: Per RN - pt taking PO and diet advanced to regular. BP remains in the 90's systolic. Will continue IVF tonight, re-eval in AM and consult MHMR when medically cleared. Discussed with RN/Lucia.
[2020-05-29 04:32] LABS: #Basophils 0.1 thou/uL (0.0-0.2); #Eosinphils 0.4 thou/uL (0.0-0.7); #Lymphocytes 3.3 thou/uL (1.20-3.40); #Monocytes 1.5 thou/uL (0.11-0.59); %Basophils 0.7 % (0.0-1.0); %Eosinophils 3.6 % (0.0-10.0); %Lymphocytes 32.7 % (21.0-51.0); %Monocytes 14.3 % (0.0-10.0); %Neutrophils 48.8 % (42.0-75.0); Hemoglobin 13.4 g/dL (12.0-16.0); Mean Corpuscular HGB CONC 34.3 g/dL (32.0-36.0); Mean Corpuscular Hemoglobin 33.2 pg (27.0-31.0); Mean Platelet Volume 8.6 fL (7.4-10.4); Platelet Count 151 thou/uL (130-400); Red Blood Cell (RBC) Count 4.04 mill/uL (4.20-5.40); White Blood Cell (WBC) Count 10.2 thou/uL (4.8-10.8)
[2020-05-29 04:56] LABS: Prothrombin Time 13.3 sec (12.0-14.7)
[2020-05-29 05:02] LABS: ALT (SGPT) 20 U/L (8-55); AST (SGOT) 16 U/L (5-34); Albumin 3.6 g/dL (3.5-5.0); Alkaline Phosphatase 48 U/L (40-110); Anion Gap 9 mmol/L (10-20); BUN (Urea Nitrogen) 5 mg/dL (7.0-18.7); Bilirubin, Total 1.7 mg/dL (0.2-1.2); Calc. Creatinine Clearance 95 mL/min (70-130); Calcium 8.8 mg/dL (7.8-10.44); Carbon Dioxide 28 mmol/L (22-29); Chloride 106 mmol/L (98-107); Estimated GFR-MDRD Greater than 90; Globulin 2.6 g/dL (2.4-3.5); Glucose 101 mg/dL (70-105); Potassium 4.2 mmol/L (3.5-5.1); Protein, Total 6.2 g/dL (6.0-8.3); Sodium 139 mmol/L (136-145)
--- NOTE | 2020-05-29 07:51 | PDOC.HOSPP ---
- Subjective Encounter Date: 05/29/20 (f/u tylenol overdose) Encounter Time: 07:48 Subjective: Pt denies any complaints this morning - denies n/v/abd pain. Is taking PO without difficulty. Denies any new concerns. - Objective Vital Signs & Weight: Vital Signs (12 hours) Temp Pulse Resp BP Pulse Ox 05/29/20 04:00 98 F 65 20 89/52 L 99 05/28/20 21:05 98.9 F 84 16 81/47 L 100 Weight Admit Weight 104 lb 12.8 oz Weight 105 lb 3.2 oz I&O: 05/28/20 05/29/20 05/30/20 06:59 06:59 06:59 Intake Total 1461 1930 Balance 1461 1930 Result Diagrams: 05/29/20 04:21 05/29/20 04:21 Additional Labs: Accuchecks 05/29/20 05/28/20 05/28/20 04:15 20:31 16:22 POC Glucose 88 136 H 112 H 05/28/20 07:53 POC Glucose 93 EKG Reviewed by me: Yes (tele - sinus 70-80's) Hospitalist ROS - Medication Medications: Active Medications Generic Name Dose Route Start Last Admin Trade Name Freq PRN Reason Stop Dose Admin Ondansetron HCl 4 mg 05/26/20 10:55 05/28/20 03:47 Ondansetron Pf 4 Mg/2 Ml Vial IVP 4 mg Q6H PRN Administration Nausea/Vomiting Ondansetron HCl 4 mg 05/26/20 10:55 05/26/20 21:43 Ondansetron Odt 4 Mg Tab PO 4 mg Q6H PRN Administration Nausea/Vomiting - Exam General Appearance: NAD Heart: RRR, no murmur Respiratory: CTAB, no wheezes, no rales, no ronchi Gastrointestinal: soft, non-tender, non-distended, normal bowel sounds Extremities: no cyanosis, no clubbing, no edema Psychiatric: normal affect Hosp A/P (1) Tylenol overdose Code(s): T39.1X1A - POISONING BY 4-AMINOPHENOL DERIVATIVES, ACCIDENTAL, INIT Status: Acute (2) Abdominal pain Code(s): R10.9 - UNSPECIFIED ABDOMINAL PAIN Status: Resolved Qualifiers: Abdominal location: generalized Qualified Code(s): R10.84 - Generalized abdominal pain (3) Suicidal intent Code(s): R45.851 - SUICIDAL IDEATIONS Status: Acute (4) Total bilirubin, elevated Code(s): R17 - UNSPECIFIED JAUNDICE Status: Acute - Plan Tylenol overdose - s/p NAC and f/u conversation with Poison control yesterday (see note). No indication for further interventions - coags normal, ast/alt normal and t bili improved. Pt with mildly elevated t bili in the past. Elevated bilirubin - improved today and RUQ ultrasound yesterday normal N/V/Abd pain -resolved - d/c IVF Hypotension - likely normal for patient, bp's taken in bed. She is asx. Up, ambulate, recheck bp. SA - pt is cleared for [facility]MR this morning - consult placed. dvt prophy - ambulatory gi prophy - not indicated code status full Cleared for MHMR - disposition pending their determination. Reviewed plan of care with patient, no questions or further needs at end of eval.
[2020-05-29 13:00] VITALS: BP 104/56; TEMP 97.8
--- NOTE | 2020-05-30 00:36 | DIS ---
DATE OF ADMISSION: 05/26/2020 DATE OF DISCHARGE: 05/29/2020 CONSULTANTS: [facility] who has created a safety contract with the patient and will follow up with her. MEDICATIONS: Reconciled at discharge. There are no new medications. Medications to continue; the patient reports being on an iron supplement, she can continue this daily. FINAL DIAGNOSES: 1. Tylenol overdose, intentional secondary to suicidal attempt. 2. Elevated bilirubin, appears chronic. 3. History of hepatitis. 4. Hypokalemia, resolved. HISTORY OF PRESENT ILLNESS: Ms. Ospina is a 24-year-old female who was brought to the emergency room after an intentional Tylenol overdose. She was treated with Ativan, started on NAC, given IV fluids and ondansetron. Please see H and P for full details. HOSPITAL COURSE: The patient completed IV NAC per protocol. A followup call with Poison Control confirmed that no additional treatment was needed. We have trended her bilirubin here, which was elevated yesterday, this was the only elevated liver function test. A right upper quadrant ultrasound was negative and her bilirubin level is lower today. This is likely chronic for the patient, no further intervention is needed. Her remaining LFTs including her coags have been normal. The patient has had low blood pressures here. She reported having nausea, vomiting, and abdominal pain up until yesterday morning. She was given IV fluids yesterday, the symptoms have resolved. Her diet was advanced and she is tolerating this well. While she is lying down, her blood pressures are in the 80s and 90 systolic. While it went up with activity, her last blood pressure was 102/50. The patient was cleared for [facility] evaluation today. That was completed and a safety contract was created. The personal service representative stated that [facility] will follow up with the patient, and that the patient prefers to follow up with [facility] for ongoing mental health needs. The patient is cleared for discharge to home. PHYSICAL EXAMINATION: Please see the note on the chart for today. CANALES FINDINGS AND TEST RESULTS: CBC today 10.2, 13.4, 39.2, 151. INR 1.0. Renal panel today 139, 4.2, 106, 28, 5, 0.7, 101. T bilirubin 1.7. Note the range of 1.5 to 2.6. AST 16, ALT 20, alkaline phosphatase 48, total protein 6.2, albumin 3.6. The lowest potassium here was 2.9, and this was replaced. Urine drug screen positive for benzodiazepines, cannabinoids. Initial Tylenol level was 49 and then less than 6 approximately 21 hours later. Abdominal ultrasound unremarkable, performed on May. DIET: Regular. ACTIVITY: No limitations. FOLLOWUP: Follow up with the [facility] for all ongoing physical and mental health needs and followup with [facility] also as needed. CODE STATUS: Full. DISCHARGE DISPOSITION: Home. I reviewed with the patient this hospitalization, the importance of followup, and the seek care precautions. There were no questions or further needs. Job ID: [id number] [facility]
== END 2020-05-29 13:48 | disposition home or self-care (01) | DRG 918 ==
LOC: ERS 05:35 → ERHOLD 07:38 → 2NO 17:57
PROVIDERS: ADMIT Student in an Organized Health Care Education/Training Program; ATTEND Student in an Organized Health Care Education/Training Program
DX: T39.1X2A Poisoning by 4-Aminophenol derivatives, intentional self-harm, initial encounter (principal); E87.6 Hypokalemia; I95.9 Hypotension, unspecified; K75.9 Inflammatory liver disease, unspecified; R10.9 Unspecified abdominal pain; Z88.0 Allergy status to penicillin
CPT/HCPCS: 36415; 36416; 76705; 80053; 80306; 80307; 81003; 81025; 83690; 83735; 85025; 85610; 85730; 93005; 96365; 96366; 96367; 96375; 96376; C9113; J0132; J2060; J2405; J2550; J3475; J3480; J7070; Q0162

== ENCOUNTER 2021-12-14 15:33 | Emergency (ER) | payer MEDICAID, SELFPAY ==
[2021-12-14] MEDS ORDERED: Ondansetron PF 4 MG/2 ML Vial ONE ×3 (15:48→17:12)
[2021-12-14 16:08] LABS: #Basophils 0.1 thou/uL (0.0-0.2); #Eosinphils 0.1 thou/uL (0.0-0.7); #Lymphocytes 3.5 thou/uL (1.20-3.40); #Monocytes 1.6 thou/uL (0.11-0.59); #Neutrophils 11.4 thou/uL (1.40-6.50); %Basophils 0.8 % (0.0-1.0); %Eosinophils 0.3 % (0.0-10.0); %Lymphocytes 21.1 % (21.0-51.0); %Monocytes 9.7 % (0.0-10.0); %Neutrophils 68.2 % (42.0-75.0); Hemoglobin 14.4 g/dL (12.0-16.0); Mean Corpuscular HGB CONC 32.8 g/dL (32.0-36.0); Mean Corpuscular Hemoglobin 32.2 pg (27.0-31.0); Mean Corpuscular Volume 98.1 fL (78.0-98.0); Mean Platelet Volume 7.4 fL (7.4-10.4); Platelet Count 245 thou/uL (130-400); Red Blood Cell (RBC) Count 4.49 mill/uL (4.20-5.40); White Blood Cell (WBC) Count 16.8 thou/uL (4.8-10.8)
[2021-12-14 16:29] LABS: Bilirubin Negative (Negative); Blood, Urine Negative (Negative); Clarity Clear (Clear); Glucose, Urine (Dipstick) Normal (Negative); Ketone, Urine 10 mg/dL (Negative); Leukocyte Negative Leu/uL (Negative); Nitrite Negative (Negative); Protein, Urine (Dipstick) 70 mg/dL (Neg-Trace); RBC/HPF 0-3 HPF (0-3); Specific Gravity, Urine 1.028 (1.002-1.036); Squamous Epithelial 0-3 HPF (0-3); Urobilinogen Normal mg/dL (Less than 2); WBC/HPF 0-3 HPF (0-3); pH, Urine 6.5 (5.0-9.0)
[2021-12-14 16:30] LABS: ALT (SGPT) 9 U/L (8-55); AST (SGOT) 19 U/L (5-34); Acetaminophen Less than 10.0 mcg/mL (10.0-30.0); Alcohol Less than 10 mg/dL (Less than 10); Alkaline Phosphatase 78 U/L (40-110); Anion Gap 21 mmol/L (10-20); BUN (Urea Nitrogen) 7 mg/dL (7.0-18.7); Bilirubin, Total 1.1 mg/dL (0.2-1.2); Calc. Creatinine Clearance 0 mL/min (70-130); Calcium 9.7 mg/dL (7.8-10.44); Carbon Dioxide 19 mmol/L (22-29); Chloride 105 mmol/L (98-107); Globulin 3.9 g/dL (2.4-3.5); Glucose 128 mg/dL (70-105); Potassium 3.8 mmol/L (3.5-5.1); Protein, Total 8.9 g/dL (6.0-8.3); Salicylate Less than 8.0 mg/dL (15.0-30.0); Sodium 141 mmol/L (136-145)
[2021-12-14 16:30] LABS: Bacteria/HPF 1+ HPF (None Seen); Pregnancy Test - Urine (BHCG) Negative (Negative); Pregu Control Background? CLEAR/WHITE (CLR/WHITE); Pregu Control Bar Appear? YES (CONTROL BAR); Specific Gravity 1.028 (1.002-1.036)
[2021-12-14 16:36] LABS: Amphetamine Not Detected (NotDetected); Barbiturates Screen Not Detected (NotDetected); Benzodiazepine Screen Not Detected (NotDetected); Cocaine Metabolite Screen Detected (NotDetected); Methadone Not Detected (NotDetected); Methamphetamine Not Detected (NotDetected); Opiate Screen Not Detected (NotDetected); Oxycodone Screen Not Detected (NotDetected); Phencyclidine (PCP) Not Detected (NotDetected); THC/Cannabinoid Screen Detected (NotDetected); Tricyclic Screen Not Detected (NotDetected)
[2021-12-14] MEDS ORDERED: diphenhydrAMINE 50 MG/ML VIAL ONE (20:05)
[2021-12-14] MEDS ORDERED: Haloperidol Lactate 5 MG/ML VIAL ONE (20:05)
[2021-12-15] MEDS ORDERED: Ondansetron ODT 4 MG TAB ONE (08:50)
== END 2021-12-15 12:48 ==
LOC: ERS 15:33
DX: T43.592A Poisoning by other antipsychotics and neuroleptics, intentional self-harm, initial encounter (principal); T43.222A Poisoning by selective serotonin reuptake inhibitors, intentional self-harm, initial encounter
CPT/HCPCS: 36415; 51701; 80053; 80306; 80307; 81003; 81015; 81025; 85025; 93005; 94760; 96374; 96375; J1200; J1630; J2405; Q0162

== ENCOUNTER 2022-05-10 17:21 | Emergency (ER) | payer MEDICAID, SELFPAY ==
[2022-05-10 17:55] LABS: #Monocytes 0.6 thou/uL (0.11-0.59); %Basophils 0.1 % (0.0-1.0); %Eosinophils 0.1 % (0.0-10.0); %Lymphocytes 5.9 % (21.0-51.0); %Monocytes 3.5 % (0.0-10.0); %Neutrophils 90.5 % (42.0-75.0); Hemoglobin 13.3 g/dL (12.0-16.0); Mean Corpuscular HGB CONC 32.9 g/dL (32.0-36.0); Mean Corpuscular Hemoglobin 31.4 pg (27.0-31.0); Mean Corpuscular Volume 95.5 fL (78.0-98.0); Platelet Count 287 thou/uL (130-400); Red Blood Cell (RBC) Count 4.25 mill/uL (4.20-5.40); White Blood Cell (WBC) Count 16.6 thou/uL (4.8-10.8)
[2022-05-10 17:56] LABS: BHCG - Serum Negative (NEGATIVE); Pregs Control Background? CLEAR/WHITE (CLR/WHITE); Pregs Control Bar Appear? YES (CONTROL BAR)
[2022-05-10] MEDS ORDERED: Ondansetron PF 4 MG/2 ML Vial ONE (18:13)
[2022-05-10] MEDS ORDERED: Famotidine/PF 20 mg/2ml Vial ONE (18:13)
[2022-05-10] MEDS ORDERED: Lidocaine Viscous Sol 2% 15 ml UD Cup ONE (18:13)
[2022-05-10] MEDS ORDERED: Dicyclomine 20 MG/2 ML VIAL ONE (18:13)
[2022-05-10] MEDS ORDERED: Mag-Al 1200 mg/1200 mg/30 ML UDCUP ONE (18:13)
[2022-05-10 18:15] LABS: ALT (SGPT) 7 U/L (8-55); AST (SGOT) 15 U/L (5-34); Albumin 4.8 g/dL (3.5-5.0); Alkaline Phosphatase 90 U/L (40-110); Anion Gap 20 mmol/L (10-20); BUN (Urea Nitrogen) 13 mg/dL (7.0-18.7); Bilirubin, Total 2.2 mg/dL (0.2-1.2); Calc. Creatinine Clearance 0 mL/min (70-130); Carbon Dioxide 18 mmol/L (22-29); Chloride 105 mmol/L (98-107); Estimated GFR 107; Globulin 4.1 g/dL (2.4-3.5); Glucose 149 mg/dL (70-105); Lipase Less than 4 U/L (8-78); Potassium 3.6 mmol/L (3.5-5.1); Protein, Total 8.9 g/dL (6.0-8.3); Sodium 139 mmol/L (136-145)
== END 2022-05-10 20:17 | disposition home or self-care (01) ==
LOC: ERS 17:21
DX: R11.2 Nausea with vomiting, unspecified (principal); R10.13 Epigastric pain
CPT/HCPCS: 80053; 83690; 84703; 85025; 94760; 96361; 96372; 96374; 96375; J2405; S0028

== ENCOUNTER 2023-04-29 14:10 | Emergency (ER) | payer SELFPAY ==
[2023-04-29] MEDS ORDERED: Ondansetron ODT 4 MG TAB ONE (14:52)
[2023-04-29] MEDS ORDERED: Dicyclomine 20 MG/2 ML VIAL ONE (15:21)
[2023-04-29] MEDS ORDERED: Promethazine HCl 25 MG/ML VIAL ONE (15:21)
[2023-04-29] MEDS ORDERED: Promethazine HCl 12.5 MG in Sodium Chloride 0.9% 50 ML IVPB SCH (15:30)
[2023-04-29 15:34] LABS: #Basophils 0.1 thou/uL (0.0-0.2); #Monocytes 0.7 thou/uL (0.11-0.59); #Neutrophils 14.6 thou/uL (1.40-6.50); %Basophils 0.3 % (0.0-1.0); %Lymphocytes 6.2 % (21.0-51.0); %Monocytes 4.4 % (0.0-10.0); %Neutrophils 88.6 % (42.0-75.0); Hematocrit 39.4 % (36.0-47.0); Hemoglobin 13.5 g/dL (12.0-16.0); Mean Corpuscular HGB CONC 34.3 g/dL (32.0-36.0); Mean Corpuscular Hemoglobin 31.8 pg (27.0-31.0); Mean Corpuscular Volume 92.7 fl (78.0-98.0); Mean Platelet Volume 10.1 fL (7.4-10.4); Platelet Count 296 10x3/uL (130-400); RBC Distribution Width 13.4 % (11.5-14.5); Red Blood Cell (RBC) Count 4.25 mill/uL (4.20-5.40); White Blood Cell (WBC) Count 16.5 10x3/uL (4.8-10.8)
[2023-04-29 15:46] LABS: BHCG - Serum Negative (NEGATIVE); Pregs Control Background? CLEAR/WHITE (CLR/WHITE); Pregs Control Bar Appear? YES (CONTROL BAR)
[2023-04-29 15:59] LABS: ALT (SGPT) 11 U/L (8-55); AST (SGOT) 19 U/L (5-34); Albumin 4.7 g/dL (3.5-5.0); Alkaline Phosphatase 95 U/L (40-110); Anion Gap 18 mmol/L (10-20); BUN (Urea Nitrogen) 7 mg/dL (7.0-18.7); Bilirubin, Total 1.1 mg/dL (0.2-1.2); Calc. Creatinine Clearance 0 mL/min (70-130); Calcium 9.5 mg/dL (7.8-10.44); Carbon Dioxide 23 mmol/L (22-29); Chloride 103 mmol/L (98-107); Estimated GFR 111; Globulin 3.8 g/dL (2.4-3.5); Glucose 148 mg/dL (70-105); Magnesium 1.5 mg/dL (1.6-2.6); Potassium 3.6 mmol/L (3.5-5.1); Protein, Total 8.5 g/dL (6.0-8.3); Sodium 140 mmol/L (136-145)
[2023-04-29] MEDS ORDERED: Prochlorperazine 10 MG/2 ML VIAL ONE (16:13)
[2023-04-29] MEDS ORDERED: Magnesium 2 GM/50 ML BAG (IN WATER) ONE (16:14)
== END 2023-04-29 17:12 | disposition home or self-care (01) ==
LOC: ERS 14:10
DX: R11.10 Vomiting, unspecified (principal)
CPT/HCPCS: 80053; 83735; 84703; 85025; 96365; 96367; 96368; 96372; J0780; J2550; J3475; Q0162

== ENCOUNTER 2023-08-19 13:17 | Emergency (ER) | payer SELFPAY ==
[2023-08-19] MEDS ORDERED: Famotidine/PF 20 mg/2ml Vial ONE (13:48)
[2023-08-19 14:26] LABS: #Basophils 0.1 thou/uL (0.0-0.2); #Monocytes 0.7 thou/uL (0.11-0.59); %Basophils 0.3 % (0.0-1.0); %Eosinophils 0.1 % (0.0-10.0); %Lymphocytes 7.5 % (21.0-51.0); %Monocytes 4.1 % (0.0-10.0); %Neutrophils 87.6 % (42.0-75.0); Hematocrit 42.1 % (36.0-47.0); Hemoglobin 14.8 g/dL (12.0-16.0); Mean Corpuscular HGB CONC 35.2 g/dL (32.0-36.0); Mean Corpuscular Volume 90.9 fl (78.0-98.0); Platelet Count 296 10x3/uL (130-400); RBC Distribution Width 12.2 % (11.5-14.5); Red Blood Cell (RBC) Count 4.63 mill/uL (4.20-5.40)
[2023-08-19] MEDS ORDERED: diphenhydrAMINE 50 MG/ML VIAL ONE (14:29)
[2023-08-19 14:39] LABS: BHCG - Serum Negative (NEGATIVE); Pregs Control Background? CLEAR/WHITE (CLR/WHITE); Pregs Control Bar Appear? YES (CONTROL BAR)
[2023-08-19 14:53] LABS: ALT (SGPT) 11 U/L (8-55); AST (SGOT) 25 U/L (5-34); Alkaline Phosphatase 73 U/L (40-110); Anion Gap 17 mmol/L (10-20); BUN (Urea Nitrogen) 18 mg/dL (7.0-18.7); Bilirubin, Total 2.1 mg/dL (0.2-1.2); Calc. Creatinine Clearance 0 mL/min (70-130); Carbon Dioxide 22 mmol/L (22-29); Chloride 102 mmol/L (98-107); Estimated GFR 106; Globulin 3.8 g/dL (2.4-3.5); Glucose 122 mg/dL (70-105); Lipase 12 U/L (8-78); Potassium 3.7 mmol/L (3.5-5.1); Protein, Total 8.8 g/dL (6.0-8.3); Sodium 137 mmol/L (136-145)
== END 2023-08-19 15:58 | disposition home or self-care (01) ==
LOC: ERS 13:17
DX: R11.2 Nausea with vomiting, unspecified (principal)
CPT/HCPCS: 36415; 80053; 83690; 84703; 85025; 96374; 96375; J1200; J1790; S0028

== ENCOUNTER 2024-05-15 15:53 | Emergency (ER) | payer SELFPAY | END 2024-05-15 16:48 | disposition left against medical advice (07) | LOC: ERS 15:53 | DX: Z53.21 Procedure and treatment not carried out due to patient leaving prior to being seen by health care provider (principal) ==

== ENCOUNTER 2024-07-15 11:27 | Emergency (ER) | payer SELFPAY ==
[2024-07-15 12:58] LABS: #Basophils 0.03 10x3/uL (0.0-0.2); #Eosinophils Less than 0.03 10x3/uL (0.0-0.7); %Basophils 0.5 % (0.0-1.0); %Eosinophils 0.3 % (0.0-10.0); %Lymphocytes 26.6 % (21.0-51.0); %Monocytes 6.1 % (0.0-10.0); %Neutrophils 65.6 % (42.0-75.0); Hematocrit 43.5 % (36.0-47.0); Hemoglobin 14.8 g/dL (12.0-16.0); Mean Platelet Volume 9.6 fL (7.4-10.4); Platelet Count 334 10x3/uL (130-400); RBC Distribution Width 13.2 % (11.5-14.5); Red Blood Cell (RBC) Count 4.63 mill/uL (4.20-5.40)
[2024-07-15 13:22] LABS: ALT (SGPT) 8 U/L (8-55); AST (SGOT) 13 U/L (5-34); Albumin 4.1 g/dL (3.5-5.0); Alkaline Phosphatase 87 U/L (40-110); Anion Gap 19 mmol/L (10-20); BUN (Urea Nitrogen) 5 mg/dL (7.0-18.7); Bilirubin, Total 0.7 mg/dL (0.2-1.2); Calc. Creatinine Clearance 0 mL/min (70-130); Calcium 8.7 mg/dL (7.8-10.44); Carbon Dioxide 20 mmol/L (22-29); Chloride 112 mmol/L (98-107); Estimated GFR 120; Globulin 3.8 g/dL (2.4-3.5); Glucose 131 mg/dL (70-105); Potassium 3.9 mmol/L (3.5-5.1); Protein, Total 7.9 g/dL (6.0-8.3); Sodium 147 mmol/L (136-145)
[2024-07-15 13:27] LABS: Acetaminophen Less than 10 mcg/mL (Less than 10); Alcohol 453.7 mg/dL (Less than 10); Salicylate Less than 8.0 mg/dL (Less than 8.0)
[2024-07-15 13:50] LABS: BHCG - Serum Negative (NEGATIVE); Pregs Control Background? CLEAR/WHITE (CLR/WHITE); Pregs Control Bar Appear? YES (CONTROL BAR)
== END 2024-07-15 19:50 | disposition home or self-care (01) ==
LOC: ERS 11:27
DX: F10.129 Alcohol abuse with intoxication, unspecified (principal)
CPT/HCPCS: 36415; 80053; 80307; 84703; 85025; 99284

== ENCOUNTER 2025-04-20 05:42 | Emergency (ER) | payer OTHER, SELFPAY ==
[2025-04-20] MEDS ORDERED: Lidocaine Viscous Sol 2% 15 ml UD Cup ONE (06:22)
== END 2025-04-20 06:57 | disposition home or self-care (01) ==
LOC: ERS 05:42
DX: T16.2XXA Foreign body in left ear, initial encounter (principal)
CPT/HCPCS: 69200; 99282